=== PATIENT | male | born 1940 | race Caucasian/White ===

== ENCOUNTER 2016-08-04 09:34 | Day surgery (SDC) | payer MEDICARE, BC ==
[~2016-08-04 09:34] MED LIST: Lactated Ringers 1,000 ML IV SCH; Sodium Chloride 0.9% 10 ML Syringe FLUSH PRN
[2016-08-04] MEDS ORDERED: Midazolam 1 MG/ML 2 ML SDV ONE ×2 (11:03→11:10)
[2016-08-04] MEDS ORDERED: fentaNYL 100 MCG/2 ML SDV ONE ×2 (11:03→11:10)
[2016-08-04] MEDS ORDERED: Propofol 200 MG/20 ML SDV ONE ×2 (11:04→11:10)
[2016-08-04] MEDS ORDERED: Lidocaine 2% HCl 11 ML Jelly Filled Syringe TOP ONE (11:24)
[2016-08-04 13:01] VITALS: BP 143/80
--- NOTE | 2016-08-04 14:07 | OR ---
Date of Procedure: 08/04/2016 PREOPERATIVE DIAGNOSIS: Bladder cancer. POSTOPERATIVE DIAGNOSIS: Bladder cancer. PROCEDURE: Cystoscopy. ANESTHESIA: MAC. COMPLICATION: None. SPECIMEN: None. DRAINS: None. BLOOD LOSS: None. 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 WHAT WAS DONE: The patient was placed on the operative table in lithotomy position. He was sedated by Anesthesia. Xylocaine gel was injected, and after he was prepped and draped sterilely, cystoscope was inserted. Urethra was unremarkable. Prostate was surgically absent. The bladder shows no evidence of recurrent lesions. The bladder was emptied. The cystoscope was removed. He tolerated this procedure without difficulty. EFREM Rock MD /[id number]
== END 2016-08-04 12:35 | disposition home or self-care (01) ==
LOC: LL.SDS 09:34
PROVIDERS: ATTEND Urology
DX: C67.9 Malignant neoplasm of bladder, unspecified (principal); E78.5 Hyperlipidemia, unspecified; G47.30 Sleep apnea, unspecified; Z88.8 Allergy status to other drugs, medicaments and biological substances; Z98.890 Other specified postprocedural states; Z79.899 Other long term (current) drug therapy; Z79.82 Long term (current) use of aspirin; Z87.891 Personal history of nicotine dependence
CPT/HCPCS: 52000; A9270; J2250; J2704; J3010; J7120; 00910-QZ; A4216

== ENCOUNTER 2017-07-13 08:33 | Day surgery (SDC) | payer MEDICARE, BC ==
[2017-07-13] MEDS ORDERED: fentaNYL 100 MCG/2 ML SDV ONE ×2 (09:21→09:30)
[2017-07-13] MEDS ORDERED: Propofol 200 MG/20 ML SDV ONE ×2 (09:21→09:30)
[2017-07-13] MEDS ORDERED: Midazolam 1 MG/ML 2 ML SDV ONE ×2 (09:21→09:30)
--- NOTE | 2017-07-13 14:21 | OR ---
Date of Procedure: 07/13/2017 HISTORY: This is a gentleman, who had a radical prostatectomy for prostate cancer in 2004. Incidentally, in the specimen, was found a transitional cell cancer. There has never been any evidence of recurrence of either cancer. PREOPERATIVE DIAGNOSIS: History of transitional cell cancer POSTOPERATIVE DIAGNOSIS: History of transitional cell cancer PROCEDURE: Cystoscopy. ANESTHESIA: Sedation and topical. COMPLICATIONS: None. SPECIMEN: None. DRAINS: None. BLOOD LOSS: None. WHAT WAS DONE: The patient was placed on the operating table in the lithotomy position. He was sedated by anesthesia. He was prepped and draped sterilely. Xylocaine gel was injected per urethra. Cystoscope was inserted. Urethra was unremarkable. Prostate is surgically absent. The bladder shows no mucosal lesions. No erythema. No stones. Bladder was emptied. The cystoscope was removed. He tolerated this procedure without difficulty. EFREM Rock MD /[id number]
[2017-07-13 14:27] VITALS: BP 157/78
== END 2017-07-13 11:29 | disposition home or self-care (01) ==
LOC: LL.SDS 08:33
PROVIDERS: ATTEND Urology
DX: Z85.46 Personal history of malignant neoplasm of prostate (principal); I48.91 Unspecified atrial fibrillation; E78.5 Hyperlipidemia, unspecified; G47.30 Sleep apnea, unspecified; Z79.82 Long term (current) use of aspirin; Z79.899 Other long term (current) drug therapy; Z87.891 Personal history of nicotine dependence; Z90.79 Acquired absence of other genital organ(s); Z88.8 Allergy status to other drugs, medicaments and biological substances
CPT/HCPCS: 52000; J2250; J2704; J3010; J7120; 00910-QZ

== ENCOUNTER 2018-07-12 08:33 | Day surgery (SDC) | payer MEDICARE, BC ==
[~2018-07-12 08:33] MED LIST changes: -Lactated Ringers 1,000 ML IV SCH; +Midazolam 1 MG/ML 2 ML SDV ONE; +Propofol 200 MG/20 ML SDV ONE; -Sodium Chloride 0.9% 10 ML Syringe FLUSH PRN
[2018-07-12] MEDS ORDERED: Sodium Chloride 0.9% 10 ML Syringe FLUSH PRN (08:45)
[2018-07-12] MEDS ORDERED: Lactated Ringers 1,000 ML IV SCH (08:45)
[2018-07-12] MEDS ORDERED: Midazolam 1 MG/ML 2 ML SDV ONE (09:31)
[2018-07-12] MEDS ORDERED: Propofol 200 MG/20 ML SDV ONE (09:31)
[2018-07-12] MEDS ORDERED: Lidocaine 2% HCl 11 ML Jelly Filled Syringe TOP ONE (09:44)
[2018-07-12 10:20] VITALS: BP 140/69
--- NOTE | 2018-07-12 13:46 | OR ---
Date of Procedure: 07/12/2018 PREOPERATIVE DIAGNOSES: 1. Carcinoma of the prostate. 2. Radical prostatectomy in 2004, after carcinoma of the prostate in 2004. 3. Incidental finding of transitional cell carcinoma in 2004. He has never had any evidence of recurrence of either cancer. PROCEDURE: Cystoscopy. ANESTHESIA: MAC. COMPLICATIONS: None. SPECIMEN: None. DRAINS: None. BLOOD LOSS: None. WHAT WAS DONE: The patient was placed on the operating table in the lithotomy position under sedation. The xylocaine gel was injected per urethra after prep and drape sterilely. Cystoscope was inserted. The urethra was unremarkable. Prostate was surgically absent. The bladder shows no mucosal lesions, no erythema, no stones. The bladder was emptied. Cystoscope was removed. He tolerated this procedure without difficulty. We will see him for a cystoscopy in a year. EFREM Rock MD /[id number]
== END 2018-07-12 10:57 | disposition home or self-care (01) ==
LOC: LL.SDS 08:33
PROVIDERS: ATTEND Urology
DX: Z08 Encounter for follow-up examination after completed treatment for malignant neoplasm (principal); I48.91 Unspecified atrial fibrillation; Z85.46 Personal history of malignant neoplasm of prostate; Z85.51 Personal history of malignant neoplasm of bladder; Z87.891 Personal history of nicotine dependence; Z79.01 Long term (current) use of anticoagulants; Z79.82 Long term (current) use of aspirin; Z79.899 Other long term (current) drug therapy; Z90.79 Acquired absence of other genital organ(s); Z88.8 Allergy status to other drugs, medicaments and biological substances
CPT/HCPCS: 00910; 52000; A9270; J2250; J2704; J7120

== ENCOUNTER 2019-05-17 11:58 | Day surgery (SDC) | payer MEDICARE, BC ==
[2019-05-17] MEDS ORDERED: Sodium Chloride 0.9% 10 ML Syringe FLUSH PRN (12:15)
[2019-05-17] MEDS ORDERED: Lactated Ringers 1,000 ML IV SCH (12:15)
--- NOTE | 2019-05-17 13:22 | PCM.PN ---
- General Info Date of Service: 05/17/19 - Review of Systems Systems Review Comment:: 79-year-old male referred by Jarred Jordan for colonoscopy. He is medically stable to proceed today. His recent history and physical is reviewed and no significant changes are noted. He has a history of colon polyps. I discussed the proposed colonoscopy with the patient. Risks such as but not limited to bleeding and GI injury reviewed. He agrees to proceed. - Patient Data Vitals - Most Recent: Last Vital Signs Temp 98.5 F 05/17/19 13:18 Pulse 68 05/17/19 13:18 Resp 20 05/17/19 13:18 BP 172/88 H 05/17/19 13:18 Pulse Ox 95 05/17/19 13:18 Weight - Most Recent: 115.212 kg Med Orders - Current: Current Medications Lactated Ringer's (Ringers, Lactated) 1,000 mls @ 125 mls/hr IV ASDIRECTED ELIZABETH Last Admin: 05/17/19 13:03 Dose: 125 mls/hr Sodium Chloride (Saline Flush) 10 ml FLUSH ASDIRECTED PRN PRN Reason: Keep Vein Open Discontinued Medications Midazolam HCl (Versed 1 Mg/Ml) Confirm Administered Dose 2 mg .ROUTE .STK-MED ONE Stop: 05/17/19 07:54 Propofol (Diprivan 20 Ml) Confirm Administered Dose 200 mg .ROUTE .STK-MED ONE Stop: 05/17/19 07:54 Sepsis Event Note - Focused Exam Vital Signs: Vital Signs Temp Pulse Resp BP Pulse Ox 05/17/19 13:18 98.5 F 68 20 172/88 H 95 Date Exam was Performed: 05/17/19 Time Exam was Performed: 13:20 - Problem List Review Problem List Initiated/Reviewed/Updated: Yes - My Orders Last 24 Hours: My Active Orders 05/17/19 12:15 Patient Status [ADT] Routine Peripheral IV Care [RC] . DIRECTED Verify Patient Consent Obtain [RC] ASDIRECTED Lactated Ringers [Ringers, Lactated] 1,000 ml IV ASDIRECTED Sodium Chloride 0.9% [Saline Flush] 10 ml FLUSH ASDIRECTED PRN Peripheral IV Insertion Adult [OM.PC] Routine - Assessment Assessment:: history of colon polyps - Plan Plan:: colonoscopy
[2019-05-17] MEDS ORDERED: Propofol 200 MG/20 ML SDV ONE ×2 (13:25→14:18)
[2019-05-17] MEDS ORDERED: Midazolam 1 MG/ML 2 ML SDV ONE (13:25)
--- NOTE | 2019-05-17 14:14 | PCM.OPNOTE ---
- General Post-Op/Procedure Note Date of Surgery/Procedure: 05/17/19 Operative Procedure(s): Colonoscopy Findings: Moderate Sigmoid Diverticulosis internal hemorrhoids Pre Op Diagnosis: history of colon polyps Post-Op Diagnosis: Sigmoid Diverticulosis Anesthesia Technique: MAC Primary Surgeon: Maldonado Teixeira Pathology: none EBL in mLs: 0 Complications: None Condition: Good
--- NOTE | 2019-05-17 16:55 | OR ---
Date of Procedure: 05/17/2019 PREOPERATIVE DIAGNOSIS: History of colon polyps. POSTOPERATIVE DIAGNOSES: Sigmoid diverticulosis and internal hemorrhoids. OPERATIONS PERFORMED: Colonoscopy. INDICATIONS FOR SURGERY: This 79-year-old male has a known history of colon polyps. He comes for surveillance colonoscopy. FINDINGS: No polyps were seen on today's exam. The patient does have a moderate amount of diverticulosis in the sigmoid region. This does not appear to be acutely inflamed, or otherwise, complicated. He also has moderate-sized internal hemorrhoids. DESCRIPTION OF PROCEDURE: The patient was taken to the operating room. He was given intravenous sedation. With him in the left lateral decubitus position, digital rectal exam was performed showing no rectal masses. The Olympus colonoscope was inserted into the rectum. Retroflexed examination of the rectal canal was performed. The scope was then carefully advanced under direct visualization through the entire length of the colon until the cecum was reached. The colon was somewhat tortuous and hand pressure was required to reach the cecum, but this was eventually able to be safely accomplished with this adjunct. The cecal identity is confirmed by noting normal internal cecal anatomy including the appendiceal orifice and ileocecal valve. After examining the cecum, the scope was slowly withdrawn sequentially re-examining the colonic segments. Once the entire colon and rectum had been fully examined, the scope was removed and the patient was taken from the operating room in satisfactory condition. ESTIMATED BLOOD LOSS: 0. COMPLICATIONS: None. PROGNOSIS: Good. EFREM Teixeira MD /[id number]
[2019-05-17 17:35] VITALS: BP 164/81; PULSE 57
== END 2019-05-17 15:20 | disposition home or self-care (01) ==
LOC: LL.SDS 11:58
PROVIDERS: ATTEND Surgery
DX: Z12.11 Encounter for screening for malignant neoplasm of colon (principal); K64.8 Other hemorrhoids; K57.30 Diverticulosis of large intestine without perforation or abscess without bleeding; I10 Essential (primary) hypertension; E78.5 Hyperlipidemia, unspecified; M19.90 Unspecified osteoarthritis, unspecified site; Z86.010 Personal history of colon polyps; Z79.899 Other long term (current) drug therapy; Z79.82 Long term (current) use of aspirin; Z87.891 Personal history of nicotine dependence; Z88.8 Allergy status to other drugs, medicaments and biological substances
CPT/HCPCS: G0121; J2250; J2704; J7120

== ENCOUNTER 2022-07-24 11:00 | Emergency (ER) | payer MEDICARE, BC ==
[2022-07-24] MEDS ORDERED: Ondansetron 4 MG Tab.DIS PO PRN (11:18)
[2022-07-24] MEDS ORDERED: Sodium Chloride 0.9% 10 ML Syringe FLUSH PRN (11:32)
[2022-07-24] MEDS ORDERED: Sodium Chloride 0.9% 1,000 ML IV ONE (11:33)
[2022-07-24 12:12] LABS: RESPIRATORY SYNCYTIAL VIR NAA NEGATIVE (NEGATIVE)
[2022-07-24 12:13] LABS: ANION GAP 9.8 meq/L (7-15)
[2022-07-24 12:17] LABS: CORONAVIRUS COVID-19 NAA POSITIVE (NEGATIVE)
[2022-07-24] MEDS ORDERED: Nirmatrelvir/Ritonavir 150 MG/100 MG Dose Pack PO SCH (12:30)
[2022-07-24 12:36] VITALS: BP 166/60; PULSE 62
[2022-07-24] MEDS ORDERED: Take Home: Ondansetron 4 MG Tab.DIS, 5 Tab Pack PO ONE (12:42)
== END 2022-07-24 13:00 | disposition home or self-care (01) ==
LOC: LL.ED 11:00
DX: U07.1 COVID-19 (principal); R00.1 Bradycardia, unspecified; R11.2 Nausea with vomiting, unspecified; R53.1 Weakness; Z88.8 Allergy status to other drugs, medicaments and biological substances; Z79.899 Other long term (current) drug therapy
CPT/HCPCS: 0241U; 36415; 74176; 80053; 81003; 83605; 85025; 93005; 93010; 96360; 99284; 99285-25; A9270-GY; J7030; Q0162

== ENCOUNTER 2024-06-21 09:36 | Day surgery (SDC) | payer MEDICARE, BC ==
[2024-06-21] MEDS ORDERED: Sodium Chloride 0.9% 10 ML Syringe FLUSH PRN (09:45)
[2024-06-21] MEDS: Lactated Ringers 1,000 ML IV SCH (10:39)
[2024-06-21 14:34] VITALS: BP 152/63; PULSE 50
== END 2024-06-21 11:50 | disposition home or self-care (01) ==
LOC: LL.SDS 09:36
PROVIDERS: ATTEND Surgery
DX: Z12.11 Encounter for screening for malignant neoplasm of colon (principal); K57.30 Diverticulosis of large intestine without perforation or abscess without bleeding; K64.8 Other hemorrhoids; Z86.0100 Personal history of colon polyps, unspecified; I12.9 Hypertensive chronic kidney disease with stage 1 through stage 4 chronic kidney disease, or unspecified chronic kidney disease; N18.32 Chronic kidney disease, stage 3b; K21.9 Gastro-esophageal reflux disease without esophagitis; E78.2 Mixed hyperlipidemia; Z79.899 Other long term (current) drug therapy
CPT/HCPCS: J2250; J2704; J7120